=== PATIENT | male | born 1970 | race Caucasian/White ===

== ENCOUNTER → 2021-07-11 | Outpatient (CLI) | payer BC ==
--- NOTE | 2021-07-11 09:04 | RAD ---
EXAM: Neck CT without contrast. HISTORY: Posterior neck swelling and palpable lump. TECHNIQUE: Computed tomographic images of the neck were obtained without contrast. *One or more of the following individualized dose reduction techniques were utilized for this examina tion: 1. Automated exposure control. 2. Adjustment of the mA and/or kV according to patient size. 3. Use of iterative reconstruction technique. COMPARISON: None. FINDINGS: There is no suspicious finding at the site of reported palpable concern within the posterio r inferior left neck, demarcated by a skin marker for the exam. There is a 6 mm benign lymph node wit hin the posterior left maxillary superior to this location. There are additional benign-appearing victorina ateral neck lymph nodes. No pathologically enlarged lymph node is seen. The parotid, submandibular an d thyroid glands are unremarkable. The visualized portions the brain are unremarkable. The orbits are unremarkable. There are tiny maxillary sinus mucous retention cysts. The mastoid air c ells are clear. There are multiple dental restorations and multiple periapical lucencies surrounding the roots of multiple mandibular and maxillary teeth. There is degenerative change involving the cerv ical spine. This includes endplate remodeling with facet and uncovertebral arthropathy. The lung apic es are unremarkable. IMPRESSION: 1. No suspicious finding at the site of palpable concern within the posterior left neck demarcated by skin marker for the exam. There is a small adjacent benign-appearing lymph node measuring 6 mm. 2. No evidence of neck lymphadenopathy. 3. Multiple periapical lucencies surrounding the roots of multiple teeth. Correlate with dental exam findings. Electronically signed by: Carmencita Preciado MD (07/11/2021 9:02 AM) [id number]
== END ==
LOC: CT 08:19
PROVIDERS: ATTEND Internal Medicine
DX: R22.1 Localized swelling, mass and lump, neck (principal); K11.6 Mucocele of salivary gland; M47.812 Spondylosis without myelopathy or radiculopathy, cervical region
CPT/HCPCS: 70490